=== PATIENT | female | born 1965 | race Two or more races ===

== ENCOUNTER 2018-01-09 11:04 | Emergency (ER) | payer OTHER ==
[~2018-01-09] VITALS: Ht 152.4 cm; Wt 65.8 kg
[2018-01-09] MEDS ORDERED: LOTREL 5-20 MG1 CAP PO (11:18)
[2018-01-09] MEDS ORDERED: LOPRESSOR25 MG PO (11:18)
[2018-01-09] MEDS ORDERED: ZOCOR20 MG PO (11:19)
[2018-01-09] MEDS ORDERED: NORFLEX100MG PO (13:09)
[2018-01-09] MEDS ORDERED: KETO10TA2 PO (13:09)
== END 2018-01-09 13:51 | disposition home or self-care (01) ==
LOC: ER 11:04
DX: S30.0XXA Contusion of lower back and pelvis, initial encounter (principal); S40.011A Contusion of right shoulder, initial encounter; S20.212A Contusion of left front wall of thorax, initial encounter; S20.211A Contusion of right front wall of thorax, initial encounter; V49.9XXA Car occupant (driver) (passenger) injured in unspecified traffic accident, initial encounter; Y93.89 Activity, other specified; Y92.488 Other paved roadways as the place of occurrence of the external cause; Y99.8 Other external cause status